=== PATIENT | male | born 1995 | race African-American/Black ===

== ENCOUNTER 2022-10-23 12:08 | Emergency (ER) | payer OTHER ==
[2022-10-23] MEDS ORDERED: Bacitracin 1 PK ONE (15:00)
== END 2022-10-23 15:20 ==
LOC: CSHERS 12:08 → EEVIPCON 12:08 → CSHERS 15:20
DX: T22.041A Burn of unspecified degree of right axilla, initial encounter (principal)
CPT/HCPCS: 99283